=== PATIENT | female | born 1995 | race Caucasian/White ===

== ENCOUNTER 2020-04-08 07:53 | Inpatient (IN) | payer OTHER, MEDICAID ==
[2020-04-08] MEDS ORDERED: RINGERS SOLUTION,LACTATED 1,000 ML IV ONE (08:08)
[2020-04-08] MEDS ORDERED: OXYTOCIN/0.9 % SODIUM CHLORIDE 30 UNIT/500 ML RTUINJ IV PRN ×2 (08:43→17:02)
[2020-04-08] MEDS: RINGERS SOLUTION,LACTATED 1,000 ML IV PRN ×2 (08:43→13:27)
[2020-04-08 08:56] LABS: ABSOLUTE BASOPHILS # (AUTO) 0.1 10^3/uL (0.0-0.2); ABSOLUTE EOSINOPHILS # (AUTO) 0.1 10^3/uL (0.0-0.6); ABSOLUTE LYMPHOCYTES (AUTO) 2.8 10^3/uL (0.5-4.7); ABSOLUTE MONOCYTES (AUTO) 0.6 10^3/uL (0.1-1.4); ABSOLUTE NEUT (AUTO) 7.4 10^3/uL (1.7-8.2); BASOPHILS % (AUTO) 0.5 % (0-2); EOSINOPHILS % (AUTO) 0.7 % (0-6); HEMATOCRIT 36.1 % (36.0-47.0); HEMOGLOBIN 11.9 g/dL (12.0-15.5); LYMPHOCYTES % (AUTO) 25.7 % (13-45); MEAN CORPUSCULAR HEMOGLOBIN 25.8 pg (27.0-33.4); MEAN CORPUSCULAR VOLUME 78 fl (80-97); MONOCYTES % (AUTO) 5.3 % (3-13); PLATELET COUNT 252 10^3/uL (150-450); RED BLOOD COUNT 4.62 10^6/uL (3.72-5.28); RED CELL DISTRIBUTION WIDTH 14.6 % (11.5-14.0); SEGMENTED NEUTROPHILS % (AUTO) 67.8 % (42-78); TOTAL CELLS COUNTED % (AUTO) 100 %
[2020-04-08 08:59] LABS: APPEARANCE,URINE SLIGHTLY-CLOUDY; BILIRUBIN,URINE NEGATIVE (NEGATIVE); COLOR,URINE YELLOW; GLUCOSE, URINE NEGATIVE (NEGATIVE); KETONES,URINE NEGATIVE (NEGATIVE); LEUKOCYTE ESTERASE,URINE SMALL (NEGATIVE); NITRITE,URINE NEGATIVE (NEGATIVE); PROTEIN,URINE NEGATIVE (NEGATIVE); URINE SPECIFIC GRAVITY 1.004; UROBILINOGEN,URINE NEGATIVE mg/dL (<2.0)
--- NOTE | 2020-04-08 09:05 | Admission Physical ---
Datetime Report Generated by CPN: 04/08/2020 09:05 CURRENT ADMISSION Hx Assessment: The History has been Reviewed and is Current Chief Complaint: Scheduled Induction of Labor Indication for Induction: Post Dates Admit Impression : Term, Intrauterine Admit Plan: Admit to Unit; Initiate Labor Induction Protocol ALLERGIES Medication Allergies: No Medication Allergies: No Known Allergies (02/11/2015) Latex: No Latex Allergies OBSTETRICAL HISTORY EDC: 04/02/2020 00:00 : 2 Para: 1 Ectopic: 0 Livin Cesareans: 0 VBACs: 0 Multiple Births: 0 Gestational Diabetes: No Rh Sensitization: No Incompetent Cervix: No GEETHA: No Infertility: No ART Treatment: No Uterine Anomaly: No IUGR: No Hx Previous C/S: No Macrosomia: No Hx Loss/Stillborn: No PIH: No Hx : No Placenta Previa/Abruption: No Depression/PP Depression: No PTL/PROM: No Post Hemorrhage: No Obstetrical History Comments: G1: 2015, 7lbs 11 oz female vaginal G2: current SEE RECORDS Alcohol: No Marijuana : No Cocaine: No Other Illicit Drugs: No Cigarettes: Never Smoker. [id number] MEDICAL HISTORY Diabetes: No Blood Transfusion: No Pulmonary Disease (Asthma, TB): No Breast Disease: No Hypertension: No Brewer Helper Surgery: No Heart Disease: No Hosp/Surgery: Yes Autoimmune Disorder: No Anesthetic Complications: No Kidney Disease: No Abnormal Pap Smear: No Neuro/Epilepsy: No Psychiatric Disorders: No Other Medical Diseases: No Hepatitis/Liver Disease: No Significant Family History: No Varicosities/Phlebitis: No Trauma/Violence : No Thyroid Dysfunction: No Medical History Comments: tonsillectomy and adenoidectomy 2001, oral surgery 2012, childbirth INFECTIOUS HISTORY Gonorrhea: No Genital Herpes: No Chlamydia: Yes Tuberculosis: No Syphilis: No Hepatitis: No HIV/AIDS Exposure: No Rash or Viral Illness: No HPV: No Infectious History Comments: chlamydia 2013 PHYSICAL EXAM General: Normal Neurologic: Normal Heart: Normal Lungs: Normal Back: Normal Abdomen: Normal Extremities: Normal Pelvic Type: Adequate Physical Exam Comments: pelvis proven to 7lbs 11 oz Vital Signs: Reviewed; Within Normal Limits VAGINAL EXAM Contraction Comments: irregular MEMBRANES Membranes: Intact FETUS A EGA: 40.6 Monitoring: External US Decelerations: None FHR Category: Category I Presentation: Vertex Admit Comment: 25yo @ 40w6d into L_D for IOL secondary to postdates. Pt. is O neg, RI, GBS negative with significant hx of obesity and an elevated 1hr GTT with refusal to complete 3hr but tracked sugars for a couple of weeks and mostly normal so she was deemed not to have GDM. Pt also positive for e-coli UTI with neg RENEE. Plan is AROM and pitocin at this time. Dr Garcia is the OB qa automation engineer today and aware of admission. PLANS FOR LABOR AND DELIVERY Labor and Delivery: None Pain Management: Epidural Feeding Preference: Breast Benefit of Breast Feed Discussed: Yes Circumcision: N/A INFORMED CONSENT Assignment: Leslie Garcia MD Signature: with User ID: [email or web address] : with User ID: [email or web address]
[2020-04-08] MEDS ORDERED: MISOPROSTOL 0.2 MG TABLET ONE (09:15)
[2020-04-08] MEDS ORDERED: OXYTOCIN/0.9 % SODIUM CHLORIDE 30 UNIT/500 ML RTUINJ ONE (09:15)
[2020-04-08] MEDS ORDERED: OXYTOCIN 10 UNIT/ML VIAL ONE (09:15)
[2020-04-08] MEDS ORDERED: LIDOCAINE 1% INJ-PF (10 MG/ML) 30 ML SDV ONE (09:15)
[2020-04-08 09:17] LABS: URINE AMPHETAMINES SCREEN NEGATIVE; URINE BARBITURATES SCREEN NEGATIVE; URINE BENZODIAZEPINES SCREEN NEGATIVE; URINE COCAINE SCREEN NEGATIVE; URINE MARIJUANA (THC) SCREEN NEGATIVE; URINE METHADONE SCREEN NEGATIVE; URINE PHENCYCLIDINE SCREEN NEGATIVE
[2020-04-08] MEDS ORDERED: ONDANSETRON HCL INJ/PF 4 MG/2 ML SDV ONE ×2 (10:37→16:06)
[2020-04-08] MEDS ORDERED: ONDANSETRON HCL INJ/PF 4 MG/2 ML SDV IV PRN (10:58)
[2020-04-08] MEDS ORDERED: FENTANYL/BUPIVACAINE/NS/PF 300 MCG/150 ML RTUINJ EPI ONE (11:14)
[2020-04-08] MEDS ORDERED: EPHEDRINE SULFATE INJ 50 MG/1 ML AMPULE ONE (11:14)
[2020-04-08] MEDS ORDERED: BUPIVACAINE HCL 0.25 % INJ/PF (2.5 MG/1 ML) 30 ML VIAL ONE (11:14)
[2020-04-08] MEDS ORDERED: FENTANYL CITRATE INJ/PF 100 MCG/2 ML AMPUL ONE (11:15)
[2020-04-08] MEDS ORDERED: ACETAMINOPHEN 325 MG TABLET PO PRN (17:02)
[2020-04-08] MEDS ORDERED: DIPHENHYDRAMINE HCL 25 MG CAPSULE PO PRN (17:02)
[2020-04-08] MEDS ORDERED: ZOLPIDEM TARTRATE 5 MG TABLET PO PRN (17:02)
[2020-04-08] MEDS ORDERED: ACETAMINOPHEN WITH CODEINE #3 TABLET PO PRN ×2 (17:02)
[2020-04-08] MEDS ORDERED: PROMETHAZINE HCL INJ 25 MG/1 ML VIAL IV PRN (17:02)
[2020-04-08] MEDS ORDERED: DIPH/PERTUSS(ACELL)/TETANUS VAC/PF 0.5 ML SYR (>=10YO) IM PRN (17:02)
[2020-04-08] MEDS ORDERED: DIBUCAINE 1% OINTMENT 28 GM TP PRN (17:02)
[2020-04-08] MEDS ORDERED: PROMETHAZINE HCL 25 MG TABLET PO PRN (17:02)
[2020-04-08] MEDS ORDERED: NA PHOS,M-B/NA PHOS,DI-BA (ADULT) 133 ML ENEMA PR PRN (17:02)
[2020-04-08] MEDS ORDERED: MAGNESIUM HYDROXIDE SUSP 30 ML UDCUP PO PRN (17:02)
[2020-04-08] MEDS ORDERED: GLYCERIN/WITCH HAZEL LEAF 1 EACH MED..WIPE TP PRN (17:02)
[2020-04-08] MEDS ORDERED: BENZOCAINE/MENTHOL AEROSOL SPRAY 56 ML TOP PRN (17:02)
[2020-04-08] MEDS ORDERED: PSEUDOEPHEDRINE HCL 30 MG TABLET PO PRN (17:02)
[2020-04-08] MEDS ORDERED: PROMETHAZINE HCL 25 MG SUPP.RECT PR PRN (17:02)
[2020-04-08] MEDS ORDERED: MEASLES,MUMPS&RUBELLA VACC/PF 0.5 ML VIAL SUBCUT PRN (17:02)
[2020-04-08] MEDS ORDERED: BENZOCAINE/MENTHOL AEROSOL SPRAY 56 ML ONE (17:06)
--- NOTE | 2020-04-08 17:31 | Warning Signs in Babies ---
VOD Warning Signs Datetime Report Generated by N: 04/08/2020 17:31 VOD#[id number] -Warning Signs in Babies: Viewed with Parent(s)/Family (04/08/2020 17:00:Kelly Naik RN)
--- NOTE | 2020-04-08 18:58 | Delivery Summary ---
Del Sum A-C Datetime Report Generated by CPN: 04/08/2020 18:57 DELIVERY PERSONNEL DELIVERY PERSONNEL: [id number] Delivery Doctor:: Leslie Spring MD SHEAR SCRAPMAN:: Blue Carl CRNA Labor and Delivery Nurse:: Kelly Naik RNtechnical cable jointer Nurse:: Dayna Carter RN Nursery Nurse:: Estephanie Mcgarry RN Nursery Nurse:: Dari Baeza RN Apartment Maintenance Technician/TOPPIECE CUTTER: Rachelle Leach, ST MATERNAL INFORMATION Delivery Anesthesia: Epidural Medications After Delivery: Pitocin Drip 20 Units/1000ml NSS Estimated Blood Loss (ml): 75 Delivery QBL: 75 Maternal Complications: None Provider Comments: VFI delivered in SHARAD presentation. No nuchal cord. Shoulders and body delivered without difficulty. Cord doubly clamped and cut and infant to maternal abdomen. Placenta delivered intact spontaneously. FF at U. 2nd degree perineal laceration repaired with good hemostsis. Mother and baby stable upon provider the room. LABOR SUMMARY EDC: 04/02/2020 00:00 No. Babies in Womb: 1 Attempted: No Labor Anesthesia: Epidural LABOR INFORMATION Reason for Induction: Post Dates Onset of Labor: 04/08/2020 09:22 Complete Dilatation: 04/08/2020 16:23 Oxytocin: Induction Group B Beta Strep: negative Steroids Given: None Reason Steroids Not Administered: Not Applicable MEMBRANES Membranes Rupture Method: Artificial Rupture of Membranes: 04/08/2020 09:22 Length of Rupture (hr): 7.32 Amniotic Fluid Color: Light Meconium Amniotic Fluid Amount: Small Amniotic Fluid Odor: None STAGES OF LABOR Stage 1 hr: 7 Stage 1 min: 1 Stage 2 hr: 0 Stage 2 min: 18 Stage 3 hr: 0 Stage 3 min: 5 Total Time in Labor hr: 7 Total Time in Labor min: 24 VAGINAL DELIVERY Episiotomy: None Laceration #1: Perineal Laceration Extension #1: Second Degree Laceration Repair: Yes Laceration Repair Note: 2nd degree laceration repaired with good hemostasis. Sponge Count Correct: Yes Sharps Count Correct: Yes CSECTION DELIVERY Primary Indication: N/A Secondary Indication: N/A CSection Incidence: N/A Labor: N/A Elective: N/A CSection Incision: N/A BABY A INFORMATION Delivery Date/Time: 04/08/2020 16:41 Method of Delivery: Vaginal Nurse Controlled Delivery: No Born in Route : No : N/A Forceps: N/A Vacuum Extraction: N/A Shoulder Dystocia : No PRESENTATION/POSITION BABY A Presentation: Cephalic Cephalic Presentation: Vertex Vertex Position: Left Occipital Anterior Breech Presentation: N/A PLACENTA INFORMATION BABY A Placenta Delivery Time : 04/08/2020 16:46 Placenta Method of Delivery: Spontaneous Placenta Status: Delivered SCORES BABY A Heart Rate 1 min: >100 bpm Resp Effort 1 min: Good Cry Reflex Irritability 1 min: Cough or Sneeze or Pulls Away Muscle Tone 1 min: Active Motion Color 1 min: Blue/Pale Resuscitation Effort 1 min: Tactile Stimulation SCORE 1 MIN: 8 Heart Rate 5 min: >100 bpm Resp Effort 5 min: Good Cry Reflex Irritability 5 min: Cough or Sneeze or Pulls Away Muscle Tone 5 min: Active Motion Color 5 min: Body [place], Extremities Blue SCORE 5 MIN: 9 INFANT INFORMATION BABY A Gestational Age at Delivery: 40.6 Gestational Status: Full Term- 39- 40.6 Weeks Outcome : Liveborn Condition : Stable Sex: Female IDENTIFICATION BABY A Infant Verification Date/Time: 04/08/2020 16:48 ID Band Number: [id number] Mother's Name Verified: Yes Infant RN Verifying : MDamián Naik RN Additional Verifying Personnel: S. Leach ST WEIGHT/LENGTH BABY A Infant Birthweight (gm): 4238 Weight (lb): 9 Infant Weight (oz): 5 Length (in): 21.00 Infant Length (cm): 53.34 CORD INFORMATION BABY A No. Cord Vessels: 3 Nuchal Cord : N/A Cord Blood Taken: Yes-For Storage (Mom's Blood type +) Infant Suction: None ASSESSMENT BABY A Skin to Skin: Yes BABY B INFORMATION : N/A SIGNATURES Signature: with User ID: [email or web address]
[2020-04-08] MEDS: IBUPROFEN 800 MG TABLET PO SCH (21:50)
[2020-04-08] MEDS: FAMOTIDINE 20 MG TABLET PO SCH (21:50)
[2020-04-08] MEDS: FERROUS SULFATE 325 MG TABLET PO SCH (22:49)
[2020-04-08] MEDS: DOCUSATE SODIUM 100 MG CAPSULE PO SCH (22:49)
[2020-04-09] MEDS: IBUPROFEN 800 MG TABLET PO SCH ×3 (06:00→22:01)
[2020-04-09 07:08] LABS: HEMATOCRIT 31.4 % (36.0-47.0); HEMOGLOBIN 10.4 g/dL (12.0-15.5); MEAN CORPUSCULAR HEMOGLOBIN 25.9 pg (27.0-33.4); MEAN CORPUSCULAR HGB CONC 33.1 g/dL (32.0-36.0); MEAN CORPUSCULAR VOLUME 78 fl (80-97); PLATELET COUNT 219 10^3/uL (150-450); RED BLOOD COUNT 4.01 10^6/uL (3.72-5.28); RED CELL DISTRIBUTION WIDTH 14.6 % (11.5-14.0)
[2020-04-09] MEDS: SENNOSIDES/DOCUSATE 8.6-50 MG 1 EACH TABLET PO SCH (09:37)
[2020-04-09] MEDS: FERROUS SULFATE 325 MG TABLET PO SCH ×2 (09:37→18:12)
[2020-04-09] MEDS: PRENATAL VITAMIN W DHA CAPSULE PO SCH (09:37)
[2020-04-09] MEDS: FAMOTIDINE 20 MG TABLET PO SCH ×2 (09:37→22:01)
[2020-04-09] MEDS: DOCUSATE SODIUM 100 MG CAPSULE PO SCH ×2 (09:38→18:12)
--- NOTE | 2020-04-09 14:49 | PDOC PROGRESS REPORT ---
Subjective-OB Progress Note for:: 04/09/20 Subjective: reports bleeding slowing,pain controlled with current meds, denies needs Physical Exam (OB) Vital Signs: Temp Pulse Resp BP Pulse Ox 97.6 F 69 17 107/58 L 100 04/09/20 07:52 04/09/20 07:52 04/09/20 07:52 04/09/20 07:52 04/09/20 07:52 Intake & Output 04/08/20 04/09/20 04/10/20 06:59 06:59 06:59 Intake Total 1092 700 Balance 1092 700 Weight 92.2 kg - Abdomen Description: Soft, Round Hernia Present: No Fundal Description: Firm, Midline Fundal Height: u/u - u/2 - Abdominal Distension: No distension Tenderness: Nontender - Extremities Lower extremities: Mario's sign - neg Calf: Normal, Nontender Objective-Diagnostic Laboratory: 04/09/20 06:41 04/09/20 04/09/20 06:41 06:41 WBC 14.0 H RBC 4.01 Hgb 10.4 L Hct 31.4 L MCV 78 L MCH 25.9 L MCHC 33.1 RDW 14.6 H Plt Count 219 Blood Type O NEGATIVE Assessment and Plan(PN) - Time Spent with Patient Time with patient: Less than 15 minutes Medications reviewed and adjusted accordingly: Yes - Disposition Anticipated Discharge: Home Within: within 24 hours
[2020-04-10] MEDS: IBUPROFEN 800 MG TABLET PO SCH (05:38)
[2020-04-10 07:52] VITALS: BP 109/59
[2020-04-10] MEDS: DOCUSATE SODIUM 100 MG CAPSULE PO SCH (10:12)
[2020-04-10] MEDS: FAMOTIDINE 20 MG TABLET PO SCH (10:12)
[2020-04-10] MEDS: SENNOSIDES/DOCUSATE 8.6-50 MG 1 EACH TABLET PO SCH (10:12)
[2020-04-10] MEDS: PRENATAL VITAMIN W DHA CAPSULE PO SCH (10:12)
[2020-04-10] MEDS: FERROUS SULFATE 325 MG TABLET PO SCH (10:12)
--- NOTE | 2020-04-10 10:36 | PDOC DISCHARGE SUMMARY ---
Impression - Admit/DC Date/PCP Admission Date/Primary Care Provider: 04/08/20 07:53 ADRI HARTMAN MD Discharge Date: 04/10/20 - PP day #2, doing well, O negative, baby is O+, needs Rhogam prior to discharge. - Additional Information Resuscitation Status: Full Code Discharge Diet: As Tolerated, Regular Discharge Activity: Activity As Tolerated, No Lifting Over 10 Pounds, Pelvic Rest Referrals: ADRI HARTMAN MD [Primary Care Provider] - Prescriptions: Ibuprofen [Motrin 800 mg Tablet] 800 mg PO Q8 #60 tablet Home Medications: No.137/Iron/Folic Acd [ Vitamin Tablet] 1 each PO DAILY 01/10/15 Ibuprofen [Motrin 800 mg Tablet] 800 mg PO Q8 #60 tablet 04/10/20 HPI Reason(s) for Admission: Onset of Labor Procedures: Ultrasound Intrapartum Procedure(s): Spontaneous Vaginal Delivery Complication(s): Laceration-Perineal Laceration-Degree: 2nd Hospital Course Hospital Course: routine Results Laboratory Results: WBC 14.0 10^3/uL (4.0-10.5) H 04/09/20 06:41 RBC 4.01 10^6/uL (3.72-5.28) 04/09/20 06:41 Hgb 10.4 g/dL (12.0-15.5) L 04/09/20 06:41 Hct 31.4 % (36.0-47.0) L 04/09/20 06:41 MCV 78 fl (80-97) L 04/09/20 06:41 MCH 25.9 pg (27.0-33.4) L 04/09/20 06:41 MCHC 33.1 g/dL (32.0-36.0) 04/09/20 06:41 RDW 14.6 % (11.5-14.0) H 04/09/20 06:41 Plt Count 219 10^3/uL (150-450) 04/09/20 06:41 Lymph % (Auto) 25.7 % (13-45) 04/08/20 08:35 Andrew % (Auto) 5.3 % (3-13) 04/08/20 08:35 Eos % (Auto) 0.7 % (0-6) 04/08/20 08:35 Baso % (Auto) 0.5 % (0-2) 04/08/20 08:35 Absolute Neuts (auto) 7.4 10^3/uL (1.7-8.2) 04/08/20 08:35 Absolute Lymphs (auto) 2.8 10^3/uL (0.5-4.7) 04/08/20 08:35 Absolute Monos (auto) 0.6 10^3/uL (0.1-1.4) 04/08/20 08:35 Absolute Eos (auto) 0.1 10^3/uL (0.0-0.6) 04/08/20 08:35 Absolute Basos (auto) 0.1 10^3/uL (0.0-0.2) 04/08/20 08:35 Seg Neutrophils % 67.8 % (42-78) 04/08/20 08:35 Urine Color YELLOW 04/08/20 07:54 Urine Appearance SLIGHTLY-CLOUDY 04/08/20 07:54 Urine pH 6.0 (5.0-9.0) 04/08/20 07:54 Ur Specific Ranger 1.004 04/08/20 07:54 Urine Protein NEGATIVE mg/dL (NEGATIVE) 04/08/20 07:54 Urine Glucose (UA) NEGATIVE mg/dL (NEGATIVE) 04/08/20 07:54 Urine Ketones NEGATIVE mg/dL (NEGATIVE) 04/08/20 07:54 Urine Blood NEGATIVE (NEGATIVE) 04/08/20 07:54 Urine Nitrite NEGATIVE (NEGATIVE) 04/08/20 07:54 Urine Bilirubin NEGATIVE (NEGATIVE) 04/08/20 07:54 Urine Urobilinogen NEGATIVE mg/dL (<2.0) 04/08/20 07:54 Ur Leukocyte Esterase SMALL (NEGATIVE) H 04/08/20 07:54 Urine WBC (Auto) 4 /HPF 04/08/20 07:54 Urine RBC (Auto) 1 /HPF 04/08/20 07:54 Urine Bacteria (Auto) 3+ /HPF 04/08/20 07:54 Squamous Epi Cells Auto 9 /HPF 04/08/20 07:54 Urine Mucus (Auto) RARE /LPF 04/08/20 07:54 Urine Ascorbic Acid NEGATIVE (NEGATIVE) 04/08/20 07:54 Urine Opiates Screen NEGATIVE 04/08/20 07:54 Urine Methadone Screen NEGATIVE 04/08/20 07:54 Ur Barbiturates Screen NEGATIVE 04/08/20 07:54 Ur Phencyclidine Scrn NEGATIVE 04/08/20 07:54 Ur Amphetamines Screen NEGATIVE 04/08/20 07:54 U Benzodiazepines Scrn NEGATIVE 04/08/20 07:54 Urine Cocaine Screen NEGATIVE 04/08/20 07:54 U Marijuana (THC) Screen NEGATIVE 04/08/20 07:54 RPR NONREACTIVE (NONREACTIVE) 04/08/20 08:35 Blood Type O NEGATIVE 04/09/20 06:41 Antibody Screen NEGATIVE 04/08/20 08:35 Screen NEGATIVE 04/09/20 06:41 Plan Plan of Treatment: d/c home- f/up with [facility] in 4 wks Time Spent: Less than 30 Minutes
== END 2020-04-10 13:00 | disposition home or self-care (01) | DRG 807 ==
LOC: LR 07:53 → 2S 20:58
PROVIDERS: ADMIT Student in an Organized Health Care Education/Training Program; ATTEND Student in an Organized Health Care Education/Training Program
PROC: 10E0XZZ Delivery of Products of Conception, External Approach (ICD-10-PCS; principal; 2020-04-08)
PROC: 0KQM0ZZ Repair Perineum Muscle, Open Approach (ICD-10-PCS; 2020-04-08)
DX: O48.0 Post-term pregnancy (principal); Z37.0 Single live birth; O77.0 Labor and delivery complicated by meconium in amniotic fluid; O70.1 Second degree perineal laceration during delivery; Z3A.40 40 weeks gestation of pregnancy
CPT/HCPCS: 1967; 36415; 80307; 81001; 85025; 85027; 85461; 86592; 86850; 86900; 86901; 94760; J2405; J2590; J2790; J3010; J3490